=== PATIENT | female | born 1950 | race Caucasian/White ===

== ENCOUNTER 2022-09-22 11:05 | Emergency (ER) | payer MEDICARE, OTHER, SELFPAY ==
[2022-09-22 13:14] VITALS: BP 140/62; PULSE 73; RESP 18; TEMP 36.9; O2SAT 97
--- NOTE | 2022-09-22 14:13 | ED.URI ---
HPI - URI/Sore Throat General Chief Complaint: Upper Respiratory Infection Stated Complaint: sorethroat,bilateral ear pain Source: patient Mode of arrival: ambulatory Limitations: no limitations History of Present Illness HPI Narrative: 72-year-old female presents to [facility] with complaints of bilateral ear pain, left worse than right, nasal congestion, sinus pressure, runny nose and dry cough for the past 2 days. Patient has been using ddop-ifl-fauohxg saline nasal spray and Delsym with minimal relief. Patient has shortness of breath, wheezing, nausea, vomiting or diarrhea MD elicited complaint: sore throat, rhinorrhea, nasal congestion and other (bilateral ear pain ) Onset (ago): day(s) (2) Able to tolerate fluids by mouth: Yes Treatments prior to arrival: cold medicine Related Data Home Medications Medication Instructions Recorded Confirmed gabapentin 100 mg capsule 100 mg PO BID 09/22/22 09/22/22 Allergies Allergy/AdvReac Type Severity Reaction Status Date / Time No Known Allergies Allergy Verified 09/22/22 13:29 Review of Systems Constitutional: Constitutional: Denies chills, Denies fatigue and Denies fever(s) ENT: Reports nasal congestion and Reports sore throat Comments: Bilateral ear pain, runny nose, sinus pressure Respiratory: Respiratory: Reports cough, Denies dyspnea and Denies wheezing Gastrointestinal: Gastrointestinal: Denies diarrhea, Denies nausea and Denies vomiting Integumentary/Breasts: Skin/Breast: Denies rash Allergic/Immunologic: Allergic/Immunologic: Denies lip swelling, Denies throat swelling, Denies tongue swelling and Denies wheezing PMFSH Comments At time of signature, I agree with nursing past medical, surgical, social and family history. There is no relevant family history pertinent to the presenting complaint. Exam Const: General: healthy appearing, no acute distress and alert Nutritional Appearance: well nourished Orientation/consciousness: patient oriented x3 Limitations: no limitations HENMT: Head: normal to inspection Ears: external ears normal and TM abnormal dull on the left, erythematous on the left and with fluid behind the TM on the left Face and sinus: sinus tenderness Mouth: Yes lip normal and Yes moist mucous membranes Throat: posterior oropharynx normal and uvula midline Other: Mild nasal congestion noted Neck: Neck: normal visual inspection Resp: Effort & Inspection: normal respiratory effort and not labored Auscultation: clear to auscultation bilaterally, no crackles, no rales and no rhonchi Cardio: Rate: regular rate Rhythm: regular rhythm Heart sounds: no murmurs Skin: General skin exam: normal color Rashes: no rashes Wounds: no wounds Neuro: Speech: normal speech Gait exam (Neuro): Normal gait present Psych: Mental Status: mental status grossly normal Affect: normal affect Attitude: cooperative Course Course Level of Care: Express Care Visit Vital Signs Vital signs: Vital Signs Temperature 36.9 C 09/22/22 13:14 Pulse Rate 73 09/22/22 13:14 Respiratory Rate 18 09/22/22 13:14 Blood Pressure 140/62 09/22/22 13:14 Pulse Oximetry 97 09/22/22 13:14 Oxygen Delivery Room Air 09/22/22 13:14 Temperature 36.9 C 09/22/22 13:14 Pulse Rate 73 09/22/22 13:14 Respiratory Rate 18 09/22/22 13:14 Blood Pressure 140/62 09/22/22 13:14 Pulse Oximetry 97 09/22/22 13:14 Oxygen Delivery Room Air 09/22/22 13:14 MDM - URI/Sore Throat MDM Narrative Medical decision making narrative: Instructed patient to continue [id number]-[id number]-swtmjth medications as needed for symptom relief. Patient agrees to take antibiotic as prescribed. Patient agrees to proceed to the emergency room if symptoms worsen Differential Diagnosis Differential diagnosis: Likely sinusitis, viral infection and bronchitis Critical Care Time Critical Care Time Critical Care Time: No Discharge Plan Discharge Clinical Impression: Acut
== END 2022-09-22 14:22 | disposition home or self-care (01) ==
PROVIDERS: Emergency Provider Nurse Practitioner Family
DX: H66.92 Otitis media, unspecified, left ear (principal)
CPT/HCPCS: 99203; G0463